=== PATIENT | male | born 2000 | race Caucasian/White ===

== ENCOUNTER 2020-09-05 14:00 | Inpatient (IN) ==
[2020-09-05] MEDS ORDERED: Isovue-370 500 ML BOTTLE IVP ONE (14:43)
[2020-09-05] MEDS ORDERED: Morphine Sulfate 2 MG/ML SYRINGE IVP ONE (14:45)
[2020-09-05 15:14] LABS: Basophils % 0.3 %; Eosinophils # 0.2 K/mcL (0.0-0.6); Eosinophils % 1.4 %; Hematocrit 43.1 % (37.5-50.1); Hemoglobin 14.4 g/dL (12.9-16.9); Immature Granulocytes % 0.4 % (0-4); Lymphocytes % 17.1 %; Mean Corpuscular HGB Conc 33.4 g/dL (31.6-35.5); Mean Corpuscular Hemoglobin 29.6 pg (28.0-33.3); Mean Corpuscular Volume 88.5 fL (83.0-100.0); Mean Platelet Volume 9.1 fL (9.4-12.4); Monocytes # 1.1 K/mcL (0.0-1.3); Monocytes % 9.7 %; Neutrophils # 8.3 K/mcL (1.6-8.9); Platelet Count 312 K/mcL (140-400); Red Blood Count 4.87 M/mcL (4.19-5.50); Red Cell Distribution Width 11.7 % (11.5-14.5); Segmented Neutrophils % 71.1 %; White Blood Count 11.7 K/mcL (4.3-11.1)
[2020-09-05 15:30] LABS: BUN/Creatinine Ratio 13 (6-26); Blood Urea Nitrogen 10 mg/dL (6-20); Calcium 9.9 mg/dL (8.6-10.3); Carbon Dioxide 29 mEq/L (23-29); Chloride 102 mEq/L (98-107); Glucose 101 mg/dL (70-105); Osmolality,Calculated 283 (280-300); Potassium 3.8 mEq/L (3.5-5.1); Sodium 137 mEq/L (136-145); eGFR For African Americans > 60 (> 60); eGFR For Non-African Americans > 60 (> 60)
[2020-09-05] MEDS ORDERED: Dexamethasone 4 MG/ML VIAL IVP ONE (17:51)
[2020-09-05] MEDS ORDERED: Ampicillin/Sulbactam 3,000 MG in 0.9 % Sodium Chloride Mini Bag 100 ML IVPB ONE (18:00)
[2020-09-05 20:18] LABS: Adenovirus Not Detected (Not Detect); Bordetella Pertussis Not Detected (Not Detect); Chlamydophila pneumoniae Not Detected (Not Detect); Coronavirus 229E Not Detected (Not Detect); Coronavirus HKU1 Not Detected (Not Detect); Coronavirus NL63 Not Detected (Not Detect); Coronavirus OC43 Not Detected (Not Detect); Human Metapneumovirus Not Detected (Not Detect); Human Rhinovirus/Enterovirus Not Detected (Not Detect); Influenza A Subtype 2009 H1 Not Detected (Not Detect); Influenza B Not Detected (Not Detect); Mycoplasma pneumoniae Not Detected (Not Detect); Parainfluenza Virus 1 Not Detected (Not Detect); Parainfluenza Virus 2 Not Detected (Not Detect); Parainfluenza Virus 3 Not Detected (Not Detect); Parainfluenza Virus 4 Not Detected (Not Detect); Respiratory Syncytial Virus Not Detected (Not Detect); SARS-CoV-2 DETECTED (Not Detect)
[2020-09-05] MEDS ORDERED: Ondansetron 4 MG/2 ML VIAL IVP PRN (20:46)
[2020-09-05] MEDS ORDERED: Acetaminophen 325 MG TABLET PO PRN (20:46)
[2020-09-05] MEDS ORDERED: Naloxone 0.4 MG/ML INJ IVP PRN (20:46)
[2020-09-05] MEDS: *HR* HYDROcodone/Acet 5/325 mg TABLET PO PRN (22:48)
[2020-09-05 23:58] LABS: Amphetamine Screen,Urine Negative ng/mL (Cutoff=1000); Barbiturate Screen,Urine Negative ng/mL (Cutoff=200); Benzodiazepines Screen,Urine Negative ng/mL (Cutoff=200); Cannabinoid Screen,Urine Negative ng/mL (Cutoff = 50); Cocaine Screen,Urine Negative ng/mL (Cutoff= 300); Opiate Screen,Urine Positive ng/mL (Cutoff=300); Phencyclidine Screen,Urine Negative ng/mL (Cutoff=25)
[2020-09-06] MEDS: Ampicillin/Sulbactam 3,000 MG in 0.9 % Sodium Chloride Mini Bag 100 ML IVPB SCH ×4 (00:28→18:36)
[2020-09-06 00:45] LABS: Hematocrit 41.3 % (37.5-50.1); Hemoglobin 13.9 g/dL (12.9-16.9); Mean Corpuscular HGB Conc 33.7 g/dL (31.6-35.5); Mean Platelet Volume 9.3 fL (9.4-12.4); Platelet Count 313 K/mcL (140-400); Red Blood Count 4.64 M/mcL (4.19-5.50); Red Cell Distribution Width 11.8 % (11.5-14.5); White Blood Count 11.8 K/mcL (4.3-11.1)
[2020-09-06 00:58] LABS: INR 1.2; Prothrombin Time 14.2 Seconds (9.4-12.1)
[2020-09-06 01:00] LABS: Activated Partial Thrombo Time 28.8 Seconds (26.0-36.0)
[2020-09-06 01:04] LABS: BUN/Creatinine Ratio 14 (6-26); Blood Urea Nitrogen 11 mg/dL (6-20); Calcium 9.6 mg/dL (8.6-10.3); Carbon Dioxide 22 mEq/L (23-29); Chloride 103 mEq/L (98-107); Glucose 133 mg/dL (70-105); Magnesium 2.1 mg/dL (1.6-2.6); Osmolality,Calculated 281 (280-300); Phosphorous 2.7 mg/dL (2.7-4.5); Potassium 4.3 mEq/L (3.5-5.1); Sodium 135 mEq/L (136-145); eGFR For African Americans > 60 (> 60); eGFR For Non-African Americans > 60 (> 60)
[2020-09-06] MEDS: dexAMETHasone 4 MG TABLET PO SCH (08:46)
[2020-09-06] MEDS: *HR* HYDROcodone/Acet 5/325 mg TABLET PO PRN (09:02)
[2020-09-06] MEDS: Vancomycin 1,250 MG/262.5 ML IV.SOLN IVPB SCH (23:40)
[2020-09-07] MEDS: Ampicillin/Sulbactam 3,000 MG in 0.9 % Sodium Chloride Mini Bag 100 ML IVPB SCH ×2 (01:10→06:15)
[2020-09-07 03:03] LABS: Hematocrit 38.7 % (37.5-50.1); Hemoglobin 13.1 g/dL (12.9-16.9); Mean Corpuscular HGB Conc 33.9 g/dL (31.6-35.5); Mean Corpuscular Hemoglobin 30.1 pg (28.0-33.3); Mean Platelet Volume 9.3 fL (9.4-12.4); Platelet Count 330 K/mcL (140-400); Red Blood Count 4.35 M/mcL (4.19-5.50); Red Cell Distribution Width 11.7 % (11.5-14.5)
[2020-09-07 03:23] LABS: BUN/Creatinine Ratio 19 (6-26); Blood Urea Nitrogen 12 mg/dL (6-20); Calcium 8.9 mg/dL (8.6-10.3); Carbon Dioxide 24 mEq/L (23-29); Chloride 105 mEq/L (98-107); Glucose 125 mg/dL (70-105); Osmolality,Calculated 287 (280-300); Potassium 3.8 mEq/L (3.5-5.1); Sodium 138 mEq/L (136-145); eGFR For African Americans > 60 (> 60); eGFR For Non-African Americans > 60 (> 60)
[2020-09-07 07:35] VITALS: BP 120/52
[2020-09-07] MEDS: Vancomycin 1,250 MG/262.5 ML IV.SOLN IVPB SCH (09:27)
[2020-09-07] MEDS: dexAMETHasone 4 MG TABLET PO SCH (09:27)
== END 2020-09-07 12:05 | disposition home or self-care (01) | DRG 178 ==
LOC: 2NENU 14:00 → EMEROOARM 14:00 → 2NENU 21:10
PROVIDERS: ADMIT Student in an Organized Health Care Education/Training Program; ATTEND Student in an Organized Health Care Education/Training Program